=== PATIENT | female | born 1985 | race Caucasian/White ===

== ENCOUNTER → 2018-07-05 10:40 | Outpatient (CLI) | payer OTHER, SELFPAY ==
--- NOTE | 2018-07-05 10:43 | US_ITS ---
STUDY: ULTRASOUND BREAST - LEFT REASON FOR EXAM: Female, 32 years old. History of left breast cellulitis. Left nipple piercing. Lateral pain. TECHNIQUE: Axial and longitudinal images of the LEFT breast were performed with a high resolution ultrasound transducer. COMPARISON: None. FINDINGS: LEFT Breast: The entire left breast was examined by ultrasound. There is a 7 mm x 7 mm x 5 mm well-defined sharply demarcated hypoechoic nodule at the 11:00 position of the breast 1 cm from nipple. This may represent either a small fibroadenoma or hemorrhagic cyst. A repeat sonogram in 4 months is recommended. US/Breast Limited Unilateral IMPRESSION: Well-defined hypoechoic nodule at 11:00 position of the breast at 1 cm from nipple as described. A repeat sonogram in 4 months is recommended. ASSESSMENT CATEGORY: BIRADS Category 3: Probably Benign - Short-Interval Follow-up Suggested. A letter regarding these results will be sent to the patient by the facility within 30 days. Electronically Signed: Veto Xavier MD at 12:04 EST Tel [phone], Service support ,
--- OUTSIDE RECORDS SUMMARY | 2018-08-21 12:40 | XMS RPT_ITS ---
:1985 Author Organization [facility] Care Team Providers Name Role Phone Judy Dunaway Attending Unavailable Judy Dunaway Referring Unavailable Judy Dunaway Primary Care Unavailable PROBLEMS PROBLEMS No Problem Records FoundPROCEDURES PROCEDURES No Procedure Records FoundRESULTS RESULTS BREAST LIMITED Observed: 07/05/2018 Status: F Source: DOOLE UNILATERAL 10:44 AM [facility] [place] [facility] Imaging Services [address] [place] [address] Breast Limited Unilateral MR#: [id number] Acct: [id number] Name: JUMA CORTES Rep #: [id number] : 1985 F 32 From: Veto Xavier MD PCP: Judy Dunaway MD Status: REG CLI Study: Breast Limited Unilateral Date of Exam: 07/05/18 Exam# [id number] Ordering Dr: Judy Dunaway MD STUDY: ULTRASOUND BREAST - LEFT REASON FOR EXAM: Female, 32 years old. History of left breast cellulitis. Left nipple piercing. Lateral pain. TECHNIQUE: Axial and longitudinal images of the LEFT breast were performed with a high resolution ultrasound transducer. COMPARISON: None. FINDINGS: LEFT Breast: The entire left breast was examined by ultrasound. There is a 7 mm x 7 mm x 5 mm well-defined sharply demarcated hypoechoic nodule at the 11:00 position of the breast 1 cm from nipple. This may represent either a small fibroadenoma or hemorrhagic cyst. A repeat sonogram in 4 months is recommended. US/Breast Limited Unilateral IMPRESSION: Well-defined hypoechoic nodule at 11:00 position of the breast at 1 cm from nipple as described. A repeat sonogram in 4 months is recommended. ASSESSMENT CATEGORY: BIRADS Category 3: Probably Benign - Short-Interval Follow- up Suggested. A letter regarding these results will be sent to the patient by the facility within 30 days. Electronically Signed: Veto Xavier MD at 12:04 EST Tel [phone], Service support , CC: Judy Dunaway MD Graphic Design Intern: Signed ALLERGIES ALLERGIES DATE TYPE / CODE NAME / CODE REACTION SEVERITY SOURCE 09/22/2014 Drug hydrocodone Swelling Unknown Fernando Allergy/416 bitartrate/[id number] [facility] [id number]([place] [address](RXNORM) [facility] ED CT) Repository 09/22/2014 Drug acetaminophen/F006 Swelling Unknown Satin Allergy/416 212167(RXNORM) [facility] [id number]([facility] ED CT) Repository ENCOUNTERS ENCOUNTERS ADMIT/DISCHARGE ACCOUNT ADMITTING ENCOUNTER LOCATION SOURCE NUMBER CLASS 07/05/2018 [id number] Ambulatory Satin Fernando 5 [facility] ing:OPUS Repository PAYERS PAYERS ENCOUNTER GUARANTOR PAYER SUBSCRIBER SOURCE 07/05/2018 ABILIO D Primary ABILIO Boaz Satin [id number] Insurance:MEDICAL WALKERDOB[facility] [id number] Number: Repository [id number]: [phone] [id number] [phone] (HP) Date:[id number] [address]NN: 07/05/2018 Secondary NOT GIVENUNK Fernando Insurance:SELF PAY [facility] Number: Effective Repository Date:2018-07-03
== END ==
PROVIDERS: Family Provider Family Medicine; PCP Family Medicine; Referring Provider Family Medicine; Visit Provider Family Medicine
DX: N61.0 Mastitis without abscess (principal)
CPT/HCPCS: 76642

== ENCOUNTER → 2019-03-08 | Outpatient (CLI) | payer OTHER, SELFPAY | END | disposition home or self-care (01) | PROVIDERS: Family Provider Family Medicine; PCP Family Medicine; Referring Provider Nurse Practitioner Family; Visit Provider Nurse Practitioner Family | DX: N39.0 Urinary tract infection, site not specified (principal) | CPT/HCPCS: 87086; 87088; 87186 ==

== ENCOUNTER → 2019-05-22 | Outpatient (CLI) | payer OTHER, SELFPAY ==
--- NOTE | 2019-05-22 16:57 | RAD_ITS ---
STUDY: X-RAY CHEST REASON FOR EXAM: Female, 33 years old. Pneumonia TECHNIQUE: PA and lateral views of the chest COMPARISON: None. FINDINGS: There is a retrocardiac infiltrate. The right lung is clear. There are no pleural effusions. There is no pneumothorax. The heart is normal in size. The visualized osseous structures are within normal limits. RAD/Chest PA and Lateral IMPRESSION: Retrocardiac infiltrate. Clear right lung. Electronically Signed: Luis Cruz, at 17:12 EDT Tel , Service support ,
== END | disposition home or self-care (01) ==
LOC: MTRAD 16:56
PROVIDERS: Family Provider Family Medicine; PCP Family Medicine; Referring Provider Family Medicine; Visit Provider Family Medicine
DX: J15.9 Unspecified bacterial pneumonia (principal)
CPT/HCPCS: 71046

== ENCOUNTER → 2019-05-23 10:45 | Outpatient (CLI) | payer OTHER, SELFPAY ==
[2019-05-23 12:26] LABS: Absolute Lymphocyte Count 1.63 X10^3/uL (0.83-4.51); Absolute Neutrophil Count 5.7 X10^3/uL (2.0-7.7); Basophil# 0.03 X10^3/uL; Basophil% 0.4 % (0-1); Eosinophil# 0.27 X10^3/uL; Eosinophils% 3.2 % (0-5); Hematocrit 41.2 % (37-47); Hemoglobin 13.8 g/dL (12.0-15.0); Lymphocyte # 1.63 X10^3/ul (4.0); Lymphocyte % 19.4 % (19-41); Mean Corp Hgb Conc 33.5 g/dL (32-36); Mean Corpuscular Hgb 29.8 pg (27.0-32.0); Mean Platelet Vol. 9.3 fl (6.2-12.0); Monocyte# 0.68 X10^3/uL; Monocyte% 8.1 % (0-10); NRBC Flagged by Analyzer 0 % (0-5); Neutrophil # 5.74 X10^3/uL (2.7-7.7); Neutrophil % 68.4 % (47-70); Platelet Count 221 K/mm3 (150-450); RBC Distribution Width CV 11.9 % (11.6-14.6); RBC Distribution Width SD 37.9 fl (35.1-43.9); Red Blood Count 4.63 M/mm3 (4.2-5.4); White Blood Count 8.4 K/mm3 (4.4-11.0)
[2019-05-23 12:37] LABS: Erythrocyte Sedimentation Rate 29 mm/hr (0-20)
== END ==
PROVIDERS: Family Provider Family Medicine; PCP Family Medicine; Visit Provider Family Medicine
DX: J15.9 Unspecified bacterial pneumonia (principal)
CPT/HCPCS: 36415; 85025; 85652; 87070; 87205

== ENCOUNTER → 2020-06-05 15:45 | Outpatient (CLI) | payer BC, SELFPAY | PROVIDERS: PCP Family Medicine; Referring Provider Family Medicine; Visit Provider Family Medicine | DX: U07.1 COVID-19 (principal) | CPT/HCPCS: 87635; U0003 ==